=== PATIENT | male | born 1975 | race African-American/Black ===

== ENCOUNTER 2023-06-04 20:49 | Emergency (ER) | payer MEDICAID ==
[~2023-06-04] VITALS: Ht 185.4 cm; Wt 91.0 kg
[2023-06-04 21:03] VITALS: O2SAT 99
[2023-06-05] MEDS ORDERED: NAPR275T96 MT (01:55)
[2023-06-05] MEDS ORDERED: DOXY-456 MT (01:55)
[2023-06-05] MEDS: KETOROLAC 60MG/2ML VIAL IM ONE (02:24)
[2023-06-05] MEDS: CEFTRIAXONE SODIUM 500MG VIAL IM ONE (02:24)
[2023-06-05] MEDS: DOXYCYCLINE HYCLATE 100MG CAPSULE PO ONE (02:25)
[2023-06-05 02:48] LABS: CLARITY URINE CLEAR (CLEAR); COLOR URINE YELLOW (YELLOW); GLUCOSE URINE NEGATIVE (NEGATIVE); KETONES URINE NEGATIVE (NEGATIVE); LEUKOCYTE ESTERASE URINE 2+ (NEGATIVE); NITRITE URINE NEGATIVE (NEGATIVE); OCCULT BLOOD URINE 1+ (NEGATIVE); PROTEIN URINE 1+ (NEGATIVE); SPECIFIC GRAVITY URINE 1.027 (1.005-1.030); UROBILINOGEN URINE 0.2 E.U./dL (0.2-1.0)
[2023-06-05 03:01] VITALS: BP 115/68; PULSE 86; RESP 16; TEMP 98.5
[2023-06-05 06:42] LABS: WBC URINE 25-50 /hpf (0-2)
[2023-06-05 06:47] LABS: BACTERIA URINE NONE SEEN; SQUAMOUS EPITHELIAL CELL URINE NONE SEEN /lpf (RARE/1+)
== END 2023-06-05 03:03 | disposition home or self-care (01) ==
LOC: ER 20:49
DX: N45.1 Epididymitis (principal)
CPT/HCPCS: 99285; 93976; 76870; 81003; 87086; 96372; 87591; J0696; J1885